=== PATIENT | male | born 1945 | race Caucasian/White ===

== ENCOUNTER → 2020-05-07 16:24 | Outpatient (CLI) | payer MEDICARE, OTHER, SELFPAY ==
--- NOTE | ~2020-05-07 | XR_ITS ---
EXAMINATION: XR shoulder RT min 2V DATE: 05/07/2020 17:37 INDICATION: Unspecified dislocation of right shoulder joint. Right shoulder injury. TECHNIQUE: 4 views of right shoulder were obtained. COMPARISON: None. FINDINGS: Bone alignment is normal. No fracture. There is mild osteoarthritis of glenohumeral joint a nd severe osteoarthritis of acromioclavicular joint. IMPRESSION: 1. Polyarticular osteoarthritis. Reviewed, dictated and finalized at location A. [employer]
== END ==
DX: S43.004D Unspecified dislocation of right shoulder joint, subsequent encounter (principal); X58.XXXD Exposure to other specified factors, subsequent encounter; M19.011 Primary osteoarthritis, right shoulder
CPT/HCPCS: 73030

== ENCOUNTER 2021-02-28 16:21 | Emergency (ER) | payer MEDICARE, OTHER, SELFPAY ==
[2021-02-28 16:33] VITALS: BP 177/86; PULSE 86; RESP 16; TEMP 36.1; O2SAT 98
--- NOTE | 2021-02-28 17:49 | ED.SKABFB ---
HPI - Skin/Abscess/Foreign Bdy General Chief complaint: Skin/Abscess/Foreign Body Stated complaint: Rash Time Seen by Provider: 02/28/21 17:49 Source: patient Mode of arrival: ambulatory Limitations: no limitations History of Present Illness HPI narrative: Hernando Spencer is a 75 yo male with PMH of HTN and aortic aneurysm repair who comes to [facility] with a 9 x 4 induration on the right upper arm from unknown etiology but has been there for 2 days and is worsening. States is very pruritic and somewhat tender Related Data Home Medications Medication Instructions Recorded Confirmed amlodipine 02/28/21 hydralazine 02/28/21 hydrochlorothiazide 02/28/21 metoprolol tartrate 02/28/21 Allergies Allergy/AdvReac Type Severity Reaction Status Date / Time acetaminophen Allergy Unknown Verified 05/04/19 10:13 Penicillins Allergy Unknown Verified 05/04/19 10:13 tetracycline Allergy Unknown Verified 05/04/19 10:13 Review of Systems Review of Systems: CONSTITUTIONAL: Denies fever, chills, sweats. EYES: Denies visual changes, redness, discharge. ENT: Denies rhinorrhea, congestion, sore throat, otalgia. CARDIOVASCULAR: Denies chest pain, palpitations, edema. RESPIRATORY: Denies dyspnea, wheezing, cough GASTROINTESTINAL: Denies abdominal pain, nausea, vomiting, diarrhea. GENITOURINARY: Denies dysuria, hematuria, abnormal discharge SKIN: Indurated area on right upper arm that is pruritic and tender NEUROLOGIC: Denies numbness, or focal weakness. PSYCHIATRIC: Denies anxiety or depression. PMFSH Past Medical History Medical History HTN (hypertension) Surgical History Surgical History (Updated 02/28/21 @ 17:59 by Ria Rascon CNP) H/O aortic aneurysm repair Social History Social History (Updated 02/28/21 @ 18:00 by Ria Rascon CNP) Smoking packs per day: 1.5 Smoking cigarettes per day: 30.0 Smoking status: Current every day smoker Tobacco type: cigarettes Alcohol intake: former Comments At time of signature, I agree with nursing past medical, surgical, social and family history. There is no relevant family history pertinent to the presenting complaint. Exam Narrative: GENERAL: This is a well-nourished, well-developed patient, in mild distress. HEAD: normocephalic, atraumatic. EYES: Sclera clear/white. Vision is grossly intact. EARS: External ears normal, . Hearing grossly intact. NOSE: External nose normal without nasal discharge, nares without redness, no rhinorrhea. THROAT: Mucous membranes moist, NECK: Neck supple, CARDIOVASCULAR: Regular rate and rhythm without murmurs, gallops, or rubs. RESPIRATORY: Clear to auscultation. Breath sounds equal bilaterally. No wheezes, rales, or rhonchi. GASTROINTESTINAL: Abdomen soft, non-tender, SKIN: warm, intact with right upper arm 9 x 4 induration with mild tenderness and itching NEURO: awake, alert, and oriented to person, place and time. There were no obvious focal neurologic abnormalities. Steady gait EXTREMITIES: Normal range of motion. BACK: Nontender without deformity Course Course Emergency Course: Patient came with #4 induration and tenderness of upper arm Started on clindamycin and prednisone with Benadryl lotion Vital Signs Vital signs: Vital Signs Temperature 97.0 F L 02/28/21 16:33 Pulse Rate 86 02/28/21 16:33 Respiratory Rate 16 02/28/21 16:33 Blood Pressure 177/86 H 02/28/21 16:33 Pulse Oximetry 98 02/28/21 16:33 Temperature 97.0 F L 02/28/21 16:33 Pulse Rate 86 02/28/21 16:33 Respiratory Rate 16 02/28/21 16:33 Blood Pressure 177/86 H 02/28/21 16:33 Pulse Oximetry 98 02/28/21 16:33 MDM - Skin/Abscess/Foreign Bdy Differential Diagnosis Differential diagnosis: Likely abscess of skin or subcutaneous tissue, urticaria, cellulitis, insect bites, contact dermatitis and other Critical Care Time Critical Care Time Critical Care
== END 2021-02-28 18:17 | disposition home or self-care (01) ==
PROVIDERS: Emergency Provider Nurse Practitioner
DX: L03.113 Cellulitis of right upper limb (principal); F17.210 Nicotine dependence, cigarettes, uncomplicated; I10 Essential (primary) hypertension
CPT/HCPCS: 99213; G0463